=== PATIENT | female | born 1945 | race Hispanic/Latino ===

== ENCOUNTER 2017-08-06 10:38 | Emergency (ER) | payer MEDICARE ==
[2017-08-06 10:54] VITALS: BP 125/96; RESP 20; O2SAT 98
[2017-08-06] MEDS ORDERED: Oxycodone/Acetaminophen 5/325 mg Tab PO ONE (11:26)
[2017-08-06] MEDS ORDERED: Oxycodone/Acetaminophen 5/325 mg Tab ONE (11:44)
--- NOTE | 2017-08-06 12:25 | RAD ---
PROCEDURE: Radiographs of the Lumbar Spine. HISTORY: back pain COMPARISON: No prior. FINDINGS: BONES: Normal alignment. No listhesis. No fracture. DISC SPACES: Unremarkable. OTHER FINDINGS: Calcified nonaneurysmal abdominal aorta. IMPRESSION: Unremarkable radiographs of the lumbar spine.
--- NOTE | 2017-08-06 13:12 | ED PDOC ---
Lower Extremity Pain/Injury Time Seen by Provider: 08/06/17 10:40 Chief Complaint (Nursing): Lower Extremity Problem/Injury Chief Complaint (Provider): Lower Extremity Problem History Per: Patient History/Exam Limitations: no limitations Onset/Duration Of Symptoms: Days (x1) Current Symptoms Are (Timing): Still Present Additional Complaint(s): Loulou Montalvo is a 72 year old female with a past medical history of hyperlipidemia, who is presenting to the ER with complains of left buttock pain , radiating down the leg, onset 1 day ago. Patient reports she took over the counter medication, Motrin and Alieve, with no relief of symptoms. She states she has had a similar problem in the past and thinks she over extended her leg during a pedicure yesterday. Patient denies any fall, trauma, or injury as well as weakness, numbness, bowel or bladder incontinence. PMD: Dinh Aguilera Past Medical History Reviewed: Historical Data, Nursing Documentation, Vital Signs Vital Signs: Last Vital Signs Temp 97 F L 08/06/17 10:50 Pulse 70 08/06/17 10:50 Resp 20 08/06/17 10:50 BP 125/96 H 08/06/17 10:50 Pulse Ox 98 08/06/17 10:50 - Medical History PMH: Hyperlipidemia - Surgical History Surgical History: - Family History Family History: States: Unknown Family Hx - Social History Current smoker - smoking cessation education provided: No Alcohol: None Drugs: Denies - Home Medications Home Medications: Ambulatory Orders Medication Instructions Recorded Cyclobenzaprine [Cyclobenzaprine 10 mg PO BID PRN #4 tab 08/06/17 HCl] - Allergies Allergies/Adverse Reactions: Allergies Allergy/AdvReac Type Severity Reaction Status Date / Time No Known Allergies Allergy Verified 08/06/17 10:54 Review of Systems ROS Statement: Except As Marked, All Systems Reviewed And Found Negative Gastrointestinal: Negative for: Other (urinary or bowel symptoms) Musculoskeletal: Positive for: Leg Pain (left buttock pain, radiating to the leg ) Neurological: Negative for: Weakness, Numbness, Other (injury, trauma) Physical Exam - Reviewed Nursing Documentation Reviewed: Yes Vital Signs Reviewed: Yes - Physical Exam Appears: Positive for: Non-toxic, No Acute Distress Head Exam: Positive for: ATRAUMATIC, NORMAL INSPECTION, NORMOCEPHALIC Skin: Positive for: Normal Color, Warm, Dry Eye Exam: Positive for: EOMI, Normal appearance, PERRL Neck: Positive for: Normal, Painless ROM, Supple Cardiovascular/Chest: Positive for: Regular Rate, Rhythm. Negative for: Murmur Respiratory: Positive for: Normal Breath Sounds. Negative for: Respiratory Distress Gastrointestinal/Abdominal: Positive for: Normal Exam, Soft. Negative for: Tenderness Back: Positive for: Normal Inspection. Negative for: L CVA Tenderness, R CVA Tenderness, Vertebral Tenderness Extremity: Positive for: Normal ROM. Negative for: Pedal Edema, Deformity Neurologic/Psych: Positive for: Alert, Oriented. Negative for: Motor/Sensory Deficits - ECG O2 Sat by Pulse Oximetry: 98 (RA) Pulse Ox Interpretation: Normal Medical Decision Making Medical Decision Making: Time: 11:26 Plan: back pain --Flexeril 10 mg PO --Percocet 1 tab PO --X-Ray L-Spine AP/LAT xray appears no fracture or dislocation pt made aware, feels better now stable for dc and outpt follow up Scribe Attestation: Documented by Maryanne Cortez, acting as a scribe for Conchita Garcia MD. Provider Scribe Attestation: All medical record entries made by the Scribe were at my direction and personally dictated by me. I have reviewed the chart and agree that the record accurately reflects my personal performance of the history, physical exam, medical decision making, and the department course for this patient. I have also personally directed, reviewed, and agree with the discharge instructions and disposition. Disposition - Clinical Impression Clinical Impression: Back pain - Patient ED Disposition Is Patient to be Admitted: No Counseled Patient/Family Regarding: Studies Performed, Diagnosis, Need For Followup - Disposition Referrals: [facility] [Outside] [facility] [Outside] Disposition: Routine/Home Disposition Time: 12:00 Condition: IMPROVED Additional Instructions: follow up with your primary doctor tomorrow return to the ED with any worsening or concerning symptoms Prescriptions: Cyclobenzaprine [Cyclobenzaprine HCl] 10 mg PO BID PRN #4 tab PRN Reason: Bladder Spasm Instructions: Low Back Pain (DC) Forms: [employer] ([place])
[2017-08-06 14:59] VITALS: PULSE 72; TEMP 98
== END 2017-08-06 15:02 | disposition home or self-care (01) ==
LOC: H.ER 10:38
DX: M54.5 Low back pain (principal); E78.5 Hyperlipidemia, unspecified